=== PATIENT | male | born 2000 | race Caucasian/White ===

== ENCOUNTER 2021-02-14 16:20 | Emergency (ER) | payer BC, SELFPAY ==
[2021-02-14 16:27] VITALS: BP 113/60; PULSE 87; RESP 18; TEMP 36.7; O2SAT 96; BMI 18.8
--- NOTE | 2021-02-14 17:27 | ED.DENTAL ---
HPI - Dental/Oral General Chief complaint: Dental/Oral Stated complaint: abcess Time Seen by Provider: 02/14/21 17:27 Source: patient Mode of arrival: ambulatory Limitations: no limitations History of Present Illness HPI Narrative: Patient with broken tooth right 1st molar for some time complaining of increased pain for last 2 weeks no fever no chills Related Data Previous Rx's Medication Instructions Recorded amoxicillin-pot clavulanate 1 tab PO BID #20 tab 02/14/21 [Augmentin] Allergies Allergy/AdvReac Type Severity Reaction Status Date / Time No Known Allergies Allergy Verified 02/14/21 16:26 Review of Systems Review of Systems: Yes all other systems are reviewed and are negative PMFSH Social History Social History Advance Directives: No Advance Directives Information Provided: No Physical Exam Vital Signs: Vital Signs: Last Vital Signs Temp 98.1 F 02/14/21 16:27 Pulse 87 02/14/21 16:27 Resp 18 02/14/21 16:27 BP 113/60 02/14/21 16:27 Pulse Ox 96 02/14/21 16:27 Body Mass Index 18.8 Const: General: comfortable HENMT: Head: Yes normal to inspection Teeth image: 1. Broken tooth exposed pulp and surrounding gum swelling 2. Broken tooth with swelling and tenderness MDM - Dental/Oral MDM Narrative Medical decision making narrative: Patient dental caries we will give Augmentin discharged on ibuprofen and Augmentin Discharge Plan Discharge Clinical Impression: Dental caries Patient Disposition: Home, Self-Care Instructions: Toothache (ED) Additional Instructions: Ibuprofen for pain Antibiotic as prescribed follow up with dentist Prescriptions: New amoxicillin-pot clavulanate [Augmentin] 875-125 mg tablet 1 tab PO BID Qty: 20 RF: 0
[2021-02-14] MEDS: Amoxicillin/Potassium Clav 875 MG TABLET PO (18:16)
== END 2021-02-14 19:25 | disposition home or self-care (01) ==
PROVIDERS: Emergency Provider Internal Medicine
DX: K02.9 Dental caries, unspecified (principal)
CPT/HCPCS: 99283

== ENCOUNTER 2022-06-30 13:54 | Emergency (ER) | payer OTHER, SELFPAY ==
[2022-06-30 14:32] VITALS: BP 122/71; PULSE 74; RESP 18; TEMP 36.6; O2SAT 99; BMI 20.3
--- NOTE | 2022-06-30 14:40 | ED_ITS ---
HPI - Wound/Laceration General Chief Complaint: Wound/Laceration Stated Complaint: cut finger Time Seen by Provider: 06/30/22 14:57 Source: patient Mode of arrival: ambulatory Limitations: no limitations History of Present Illness HPI narrative: Fracisco is a 21 yo male with no PMHx who presents to the emergency department today with a CC of a left index finger laceration after picking up a saw at work. Pt says saw slipped in his hands due to it being wet from the rain and it cut him on his finger. He does endorse some sharp pain and some bleeding from site. He denies any difficulty moving finger or any numbness or tingling. He denies any other concerns or symptoms at this time. Onset (ago): day(s) Location: other (hand) Extremity Location: left: hand Place: work Patient tetanus UTD: No Context: accidental Associated symptoms: none Related Data Previous Rx's Medication Instructions Recorded amoxicillin 875 mg-potassium 1 tab PO BID #20 tabs 02/14/21 clavulanate 125 mg tablet (Augmentin) Allergies Allergy/AdvReac Type Severity Reaction Status Date / Time No Known Allergies Allergy Verified 06/30/22 14:31 Review of Systems Review of Systems: Yes all other systems are reviewed and are negative Constitutional: Constitutional: Reports no additional constitutional complaints, Denies body ache(s), Denies chills, Denies fever(s), Denies headache(s) and Denies weakness Eyes: Eyes: Reports no additional eye complaints and Denies change in vision ENT: Reports system reviewed and no additional complaints, except as documented, Denies dizziness, Denies headache(s), Denies nasal congestion, Denies nasal discharge and Denies neck pain Cardiovascular: Cardiovascular: Reports no additional cardiovascular complaints, Denies chest pain, Denies leg edema and Denies dyspnea Respiratory: Respiratory: Reports no additional respiratory complaints, Denies cough and Denies dyspnea Gastrointestinal: Gastrointestinal: Reports no additional gastrointestinal com plaints, Denies abdominal pain, Denies diarrhea, Denies nausea and Denies vomiting Genitourinary: Genitourinary: Denies urinary incontinence Musculoskeletal: Musculoskeletal: Reports no additional musculoskeletal complaints, Denies back pain, Denies arthralgias, Denies joint swelling, Denies neck pain, Denies numbness and Denies tingling Integumentary/Breasts: Skin/Breast: Reports system reviewed and no additional complaints, except as docu and Denies rash Comments: 1.5 cm linear laceration with small flap on left index finger Neurologic: Reports system reviewed and no additional complaints, except as documented, Denies dizziness, Denies headache(s), Denies numbness, Denies tingling and Denies weakness PMFSH Social History Social History Advance Directives: No Advance Directives Information Provided: Yes Physical Exam Vital Signs: Vital Signs: Last Vital Signs Temp 97.8 F 06/30/22 14:32 Pulse 74 06/30/22 14:32 Resp 18 06/30/22 14:32 BP 122/71 06/30/22 14:32 Pulse Ox 99 06/30/22 14:32 O2 Del Method 06/30/22 14:32 BMI result Body Mass Index 20.3 Skin: General skin exam: no rashes or lesions noted Lesions: no lesions Rashes: no rashes Trauma: laceration (1.5 cm linear laceration with partial flap left index finger over dorsal fi) Course Course Course Narrative: this is rapid medical exam. Deferred additional HPI, ROS, PE to primary provider. Right hand dominant here with injury to left index finger from hand saw at work. FROM of digit. Will need tetanus and wound repair. Frcaisco is a 21 year old male with no PMHx who presents to the ED with a CC of left index finger laceration after picking up a saw at work. He denies any concerns besides the bleeding and pain from site. He has full ROM of finger and no decrease in sensation. Wound was cleaned and close with 4 simple interrupted 5-0 nylon sutures. No complications during procedure. Sterile technique was used. Advised pt on wound care and told him to f/u in 7-10 days to have sutures removed. Medications Administered Discontinued Medications Generic Name Dose Route Start Last Admin Trade Name Freq PRN Reason Stop Dose Admin Diphtheria/Tetanus/Acell Pertussis 0.5 ml 06/30/22 14:57 06/30/22 15:19 Diphth,Pertus(Acell),Tet Adult 0.5 Ml Syringe IM 06/30/22 14:58 0.5 ml .ONCE ONE Administration Lidocaine HCl 2 ml 06/30/22 15:02 06/30/22 15:22 Lidocaine Hcl 1 % Mpf 2 Ml Vial INFILTRATI 06/30/22 15:03 2 ml ONCE ONE Administration Lidocaine HCl 2 ml 06/30/22 15:02 06/30/22 15:21 Lidocaine Hcl 1 % Mpf 2 Ml Vial INFILTRATI 06/30/22 15:03 2 ml ONCE ONE Administration MDM - Wound/Laceration MDM Narrative Medical decision making narrative: Fracisco is a 22 yo male who presents today to the ED for left index finger laceration after picking up saw. Would was cleaned and closed with 4 simple interrupted 5-0 nylon sutures with no complications during procedure. Sterile technique was used and told patient he needs to f/u in 7-10 days to have sutures removed. Pt had no other concerns and was discharged with wound care instr uctions. Pt was advised on signs of infection and will f/u with provider if he has any other concerns. Differential Diagnosis Differential diagnosis: Likely laceration Medical Records Attestation: I reviewed the patient's medical records. Procedures Laceration Laceration 1: Site: other (index finger) Side (If applicable): left Size (cm): 1.5 Description: linear and flap Depth: simple, single layer Local Anesthetic: lidocaine 1% Amount of anesthesia used (mL): 3 Pre-repair: irrigated extensively Skin layer closed with: nylon Size (cm): 5-0 Number of sutures: 4 Technique: simple, interrupted Discharge Plan Discharge Clinical Impression: Laceration Patient Disposition: Home, Self-Care Instructions: Finger Laceration (ED) Additional Instructions: Sutures out in 7-10 days You may wash the area with soap and water daily. No soaking in water. Prescriptions: No Action amoxicillin-pot clavulanate [Augmentin] 875-125 mg tablet 1 tab PO BID Qty: 20 0RF Referrals: Physician,Unknown J [Primary Care Provider] - Stand Alone Forms: Work/School Release Interventions: ED Discharge Assessment Last Done: 06/30/22 16:13 Discharge Date/Time: 06/30/22 16:14
[2022-06-30] MEDS: Diphth,Pertus(ACell),Tet Adult 0.5 ML SYRINGE IM (15:19)
[2022-06-30] MEDS: Lidocaine HCl 1 % MPF 2 ML VIAL INFILTRATI ×2 (15:21→15:22)
== END 2022-06-30 16:14 | disposition home or self-care (01) ==
PROVIDERS: Emergency Provider Emergency Medicine
DX: S61.211A Laceration without foreign body of left index finger without damage to nail, initial encounter (principal); W27.0XXA Contact with workbench tool, initial encounter; Y93.89 Activity, other specified; Y92.512 Supermarket, store or market as the place of occurrence of the external cause; Y99.0 Civilian activity done for income or pay
CPT/HCPCS: 12001; 90471; 90715; 99283; 99284